=== PATIENT | female | born 1950 | race Caucasian/White ===

== ENCOUNTER 2018-07-17 08:25 | Inpatient (IN) ==
[2018-07-17] MEDS: HYDROmorphone 2 MG/ML VIAL IV PRN ×4 (08:35→10:14)
--- NOTE | 2018-07-17 09:06 | XRay Report ---
CLINICAL INFORMATION: Hip fracture TECHNIQUE: AP supine portable chest x-ray COMPARISON: None. FINDINGS: There is cardiomegaly. No pulmonary edema. Pulmonary parenchymal consolidation. No evidence for pneumonia. No acute abnormality. There is a round density projected behind the right hemidiaphragm. This is consistent with a granuloma. IMPRESSION: 1. Cardiomegaly. No pulmonary edema 2. No acute infiltrate Interpreted and Authenticated by: Ric Jarquin 07/17/18
--- NOTE | 2018-07-17 09:07 | XRay Report ---
CLINICAL INFORMATION: Fall. Hip pain. TECHNIQUE: AP pelvis. AP and lateral right hip COMPARISON: None. FINDINGS: Mildly comminuted right subtrochanteric hip fracture with varus angulation deformity. Right femoral head and neck are negative. Pelvis and left hip are negative. IMPRESSION: Subtrochanteric right hip fracture as above Interpreted and Authenticated by: Ric Jarquin 07/17/18
--- NOTE | 2018-07-17 09:18 | Emergency Department Note ---
Lower Extremity Injury HPI - General Chief Complaint: Extremity Injury, Lower Stated Complaint: R hip injury Time Seen by Provider: 07/17/18 09:14 Source: patient, EMS Mode of arrival: EMS - History of Present Illness HPI Narrative: This patient got tangled up with some dogs at home this morning that were fighting and she fell and broke her right hip. She has had a recent cold recently but no other symptoms. - Related Data Home Medications Medication Instructions Recorded Confirmed aspirin 325 mg tablet 325 mg PO QDAY 07/10/16 07/17/18 Previous Rx's Medication Instructions Recorded cholecalciferol (vitamin D3) 2,000 2,000 unit PO QDAY #90 cap 07/15/15 unit capsule pramipexole 0.125 mg tablet 0.125 mg PO QHS #60 tab 04/04/18 rosuvastatin 5 mg tablet 5 mg PO QDAY #90 tab 04/04/18 tramadol 50 mg tablet 50 mg PO Q6H PRN #30 tab 05/07/18 lisinopril 20 1 tab PO QDAY #90 tab 05/13/18 mg-hydrochlorothiazide 12.5 mg tablet bisoprolol fumarate 10 mg tablet 10 mg PO QDAY #90 tab 07/11/18 Allergies Allergy/AdvReac Type Severity Reaction Status Date / Time sertraline [From Zoloft] AdvReac Mild made her Verified 07/17/18 08:31 sick per patient Review of Systems All systems ED: reviewed and negative except as stated. Past Medical History - Past Medical History PMF Narrative: Medical History (Last Reviewed 05/07/18 @ 13:05 by Shonda Lei DO) RLS (restless legs syndrome) (Chronic) Elevated total protein (Chronic) Vitamin D deficiency (Chronic) Hyperlipidemia (Chronic) Hematuria (Chronic) Anxiety (Chronic) Osteopenia (Chronic) Breast nodule (Chronic) Physical exam (Chronic) Hypertension, essential (Chronic) Past Surgical History (Last Reviewed 05/07/18 @ 13:05 by Shonda Lei DO) H/O ovarian cystectomy (Inactive) History of tubal ligation (Inactive) Hx of appendectomy (Inactive) Family History (Last Reviewed 05/07/18 @ 13:05 by Shonda Lei DO) Mother Malignant neoplasm of brain Essential hypertension Cerebrovascular accident Grandmother-maternal Cerebrovascular accident - Social History smoking status: Former smoker Physical Exam She does have some swelling about the right hip. Limitations: no limitations General appearance: alert Head: atraumatic Eye: Present: normal appearance ENT: normal exam Neck: Present: normal inspection Chest: Present: normal inspection Respiratory: Present: normal lung sounds bilaterally Cardiovascular: Present: regular rate, normal rhythm, normal heart sounds Abdominal: Present: soft. Absent: distention, tenderness Neurological: Present: alert Psychiatric: Present: normal affect, normal mood Skin: Present: warm, dry, intact Course Vital Signs Temperature 97.4 F 07/17/18 08:26 Pulse Rate 70 07/17/18 08:26 Respiratory Rate 20 07/17/18 08:26 Blood Pressure 183/84 07/17/18 08:26 Pulse Oximetry (%) 98 07/17/18 08:26 Temperature 97.4 F 07/17/18 08:26 Pulse Rate 68 07/17/18 10:01 Respiratory Rate 20 07/17/18 08:30 Blood Pressure 170/94 07/17/18 10:01 Pulse Oximetry (%) 99 07/17/18 10:01 Extremity Injury, Lower - MDM Narrative Medical decision making narrative: This patient has a subtrochanteric hip fracture on the right. Chest x-ray was not remarkable. The surgeon Dr. Posadas is in surgery currently and gave us permission to have the hospitalist admit her to the hospital. Dr. Palma did accept the patient for admission - Lab Data Result diagrams: 07/17/18 09:11 07/17/18 09:11 Lab Results 07/17/18 Range/Units 09:11 WBC 6.8 (4.5-11.0) K/mcL RBC 3.30 L (4.00-5.20) M/mcL Hgb 9.5 L (12.0-15.0) g/dL Hct 28.8 L (36.0-48.0) % MCV 87.4 (80.0-100.0) fL MCH 28.7 (26.0-34.0) pg MCHC 32.9 (31.0-36.0) g/dL RDW 17.0 H (11.5-14.5) % Plt Count 346 (140-440) K/mcL MPV 7.2 L (7.4-10.4) fL Gran % 76.7 (38.0-78.0) % Lymph % (Auto) 11.4 L (15.5-49.0) % [place] % (Auto) 9.8 (1.0-12.0) % Eos % (Auto) 1.5 (0.0-7.0) % Baso % (Auto) 0.6 (0.0-2.0) % Gran # 5.2 (1.8-8.0) K/mcL Lymph # (Auto) 0.8 L (1.5-4.8) K/mcL [place] # (Auto) 0.7 (0.1-0.9) K/mcL Eos # (Auto) 0.1 (0.0-0.7) K/mcL Baso # (Auto) 0 (0.0-0.3) K/mcL - Radiology Data Radiology results reviewed: Yes I reviewed the patient's radiology results. Disposition Pt seen by [facility]/PA only: No Clinical Impression: Fracture of hip Disposition: Xfer As Inpt ([facility]) Condition: Good Referrals: Shonda Lei DO [Primary Care Provider] - Time of Disposition: 10:02
[2018-07-17 10:05] LABS: Basophils # (Auto) 0 K/mcL (0.0-0.3); Basophils % (Auto) 0.6 % (0.0-2.0); Eosinophils # (Auto) 0.1 K/mcL (0.0-0.7); Eosinophils % (Auto) 1.5 % (0.0-7.0); Granulocytes % (Auto) 76.7 % (38.0-78.0); Lymphocytes # (Auto) 0.8 K/mcL (1.5-4.8); Lymphocytes % (Auto) 11.4 % (15.5-49.0); Mean Cell Volume 87.4 fL (80.0-100.0); Mean Corpuscular HGB Conc 32.9 g/dL (31.0-36.0); Mean Corpuscular Hemoglobin 28.7 pg (26.0-34.0); Monocytes # (Auto) 0.7 K/mcL (0.1-0.9); Monocytes % (Auto) 9.8 % (1.0-12.0); Platelet Count 346 K/mcL (140-440)
[2018-07-17 10:33] LABS: ALT/SGPT 10 U/l (0-40); Albumin 3.4 gm/dL (3.2-5.2); Albumin/Globulin Ratio 0.5 (1.0-2.3); Alkaline Phosphatase 50 U/L (39-117); Blood Urea Nitrogen 14 mg/dl (8-23)
--- NOTE | 2018-07-17 10:44 | Internal Med History&Physical ---
Medical - H&P: HPI Patient information: Note initiated : 07/17/18 at 10:39 am Service Date, if different from initiated Date: [] Patient: Angelica Lockett a 68 y/o F admitted on for Rt Hip Injury. Chief Complaint: [] History of present illness: Ms. Lockett is a 68 year old F with a history of osteopenia who sitting on a couch with her when her dog started fighting. She stood up rapidly and the bent over rapidly to grab the dog and is when she felt immediate pain in her right hip. She sat down and then her helped her to stand up and that she heard a pop with more pain. She was immediately brought into the ER where she was found to have a right comminuted and angulated hip fracture on the right. Vital signs are stable other than being hypertensive at this time. Denies any chest pain shortness of breath lightheadedness abdominal pain, no numbness or tingling to extremity. Dr. Posadas contacted from the ED for orthopedic surgical intervention. Review of Systems: Right hip pain and swelling . denies headache/fever/chills/nausea/vomiting/ chest or abdominal pain/cough/dyspnea/diarrhea. Remaining 10 point review of systems reviewed and negative. Medical - H&P: PMH Medical history: Medical History (Last Reviewed 05/07/18 @ 13:05 by Shonda Lei DO) RLS (restless legs syndrome) (Chronic) Elevated total protein (Chronic) Vitamin D deficiency (Chronic) Hyperlipidemia (Chronic) Hematuria (Chronic) Anxiety (Chronic) Osteopenia (Chronic) Breast nodule (Chronic) Physical exam (Chronic) Hypertension, essential (Chronic) Past Surgical History (Last Reviewed 05/07/18 @ 13:05 by Shonda Lei DO) H/O ovarian cystectomy (Inactive) History of tubal ligation (Inactive) Hx of appendectomy (Inactive) Family History (Last Reviewed 05/07/18 @ 13:05 by Shonda Lei DO) Mother Malignant neoplasm of brain Essential hypertension Cerebrovascular accident Grandmother-maternal Cerebrovascular accident Social History (Last Updated 05/07/18 @ 13:29 by Shonda Lei DO) Quit smoking a year and half ago Drinks alcohol rarely In place with a cane Lives at home with Medical - H&P: Meds Home Medications Medication Instructions Recorded Confirmed Type cholecalciferol (vitamin D3) 2,000 2,000 unit PO QDAY #90 cap 07/15/15 07/17/18 Rx unit capsule aspirin 325 mg tablet 325 mg PO QDAY 07/10/16 07/17/18 History pramipexole 0.125 mg tablet 0.125 mg PO QHS #60 tab 04/04/18 07/17/18 Rx rosuvastatin 5 mg tablet 5 mg PO QDAY #90 tab 04/04/18 07/17/18 Rx tramadol 50 mg tablet 50 mg PO Q6H PRN #30 tab 05/07/18 07/17/18 Rx lisinopril 20 1 tab PO QDAY #90 tab 05/13/18 07/17/18 Rx mg-hydrochlorothiazide 12.5 mg tablet bisoprolol fumarate 10 mg tablet 10 mg PO QDAY #90 tab 07/11/18 07/17/18 Rx Allergies Allergy/AdvReac Type Severity Reaction Status Date / Time sertraline [From Zoloft] AdvReac Mild made her Verified 07/17/18 08:31 sick per patient Medical - H&P: Exam - Constitutional Vitals: Temp Pulse Resp BP Pulse Ox 97.4 F 68 20 170/94 99 07/17/18 08:26 07/17/18 10:01 07/17/18 08:30 07/17/18 10:01 07/17/18 10:01 Exam: General: Alert, Awake, No acute Distress HEENT: EOMI, neck supple CV: RRR, No murmurs, normal s1/s2 Pulm: Clear b/l, no wheezing/rhonchi/rales Abd: soft, nontender, +BS x4 Ext: no clubbing/cyanosis/edema. Right leg shortened and externally rotated Neuro: Alert, no focal deficits, moves all extremities Skin: warm/dry Medical - H&P: Reslt - Labs CBC & Chem 7: 07/17/18 09:11 07/17/18 09:11 Labs: Short CBC 07/17/18 Range/Units 09:11 WBC 6.8 (4.5-11.0) K/mcL Hgb 9.5 L (12.0-15.0) g/dL Hct 28.8 L (36.0-48.0) % Plt Count 346 (140-440) K/mcL BMP 07/17/18 09:11 Sodium 135 Potassium 3.7 Chloride 92 L Carbon Dioxide 22 BUN 14 Creatinine 0.9 Glucose 177 H Calcium 9.6 Liver Function 07/17/18 Range/Units 09:11 Total Bilirubin 0.5 (0.0-1.0) mg/dL AST 19 (0-37) U/l ALT 10 (0-40) U/l Alkaline Phosphatase 50 (39-117) U/L Albumin 3.4 (3.2-5.2) gm/dL - Impressions Chest x-ray unremarkable Right hip x-ray with comminuted and angulated fracture Medical - H&P: A/P - Narrative A/P Narrative: A: *Right hip fracture: *Osteopenia: *Hypertensive urgency: * P: -Dr. Posadas for orthopedic surgery -Pain control -Continue home BP medication medications postop and IV PRN prior while n.p.o. -PT/OT -This management for placement - - -ppx: SCDs, postop per Ortho
--- NOTE | 2018-07-17 10:58 | Cat Scan Report ---
CLINICAL INFORMATION: Right hip fracture. This may be a pathologic fracture TECHNIQUE: Axial noncontrast enhanced images through the chest, abdomen, pelvis. Sagittally and coronally reformatted images. Axial MIP reformatted images of the chest COMPARISON: Chest x-ray dated 07/17/2018. Right hip dated 07/17/2018 FINDINGS: CHEST: There is a noncalcified right lower lobe pulmonary parenchymal mass. This measures 21 x 13 x 13 mm. Findings are suspicious for neoplasm. There is a 6 mm noncalcified pulmonary parenchymal nodule in the left lower lobe, image 63. There is a 4 mm noncalcified left upper lobe nodule, image 33. There is a 3 mm right upper lobe nodule, image 54. There is a calcified right middle lobe granuloma. No pulmonary parenchymal consolidation. No evidence for pneumonia. There are small pretracheal mediastinal lymph nodes which are not enlarged and are probably physiologic. No detectable hilar adenopathy on this noncontrast enhanced examination. There may be a 14 mm left breast mass. Significance is not certain. Mammography is recommended. Patient's last mammogram was on 06/22/2017. No axillary or supraclavicular adenopathy. There is no pleural fluid. No pericardial fluid. There is a large hiatal hernia. ABDOMEN/PELVIS: Liver is negative to the limits of noncontrast enhanced examination. Gallbladder is present. No calcified gallstones. No gallbladder wall thickening. No pericholecystic fluid Spleen is not enlarged. Negative pancreas. No pancreatic mass. Negative adrenal glands. No adrenal mass. There is an 8 mm low-density abnormality in the posterior mid left kidney. This may be a cyst. Ultrasound is recommended to exclude a solid mass. Kidneys are otherwise negative. There is calcification of the abdominal aorta. No abdominal aortic aneurysm. There is mild sigmoid diverticulosis. Colon is otherwise negative. No detectable mass. No appendicitis. No mechanical small bowel obstruction. Uterus is somewhat atrophic. No adnexal mass. Incidental note is made of a right-sided spiculation hernia containing only fat. Hernia defect measures 2 cm. SKELETAL: There is a comminuted right subtrochanteric hip fracture. Subtrochanteric bone is abnormal consistent with pathologic fracture. No detectable periosseous mass. The right femur is not imaged in its entirety. The proximal right femoral diaphysis is abnormal consistent with malignancy. Further imaging of the entire right femur is recommended. CT scan or MRI scan would be helpful. There is abnormality of the right femoral neck and intertrochanteric region consistent with neoplasm. There are no lytic or sclerotic lesions with in the ribs. Sternum is negative. There is mild T6 superior endplate depression. There is a lucency within this vertebral body. This may be metastatic. This may be a mild pathologic superior endplate compression fracture. Thoracic vertebral bodies are otherwise negative. Lumbar spine is negative except for severe degenerative disc disease at L2-3 and L5-S1. No destructive lesions. Sacrum is negative. No pelvic lesions. Left femoral head and neck are negative IMPRESSION: 1. Comminuted right subtrochanteric hip fracture. Findings are consistent with pathologic fracture with evidence for marrow replacement extending into the right femoral neck and proximal right femoral diaphysis. Caudal extent of tumor is not imaged 2. Mild T6 superior endplate compression deformity. There is a lucency within this vertebral body and this may be pathologic. 3. No other detectable skeletal lesions. 4. 2.1 cm right lower lobe pulmonary parenchymal nodule. Findings are suspicious for malignancy. Small noncalcified nodules are nonspecific as above. Follow-up recommended 5. Possible left breast mass. Mammography recommended Interpreted and Authenticated by: Ric Jarquin 07/17/18
[2018-07-17] MEDS ORDERED: ONDANSETRON 4 MG/2 ML VIAL IV PRN ×3 (12:06→22:58)
[2018-07-17] MEDS ORDERED: traMADol 50 MG TABLET PO PRN ×2 (12:06→22:58)
[2018-07-17] MEDS ORDERED: PROCHLORPERAZINE 25 MG SUPP.RECT PR PRN ×2 (12:06→22:58)
[2018-07-17] MEDS ORDERED: IPRATROPIUM/ALBUTEROL 3 ML AMPUL.NEB NEB PRN ×3 (12:06→22:58)
[2018-07-17] MEDS ORDERED: ACETAMINOPHEN 325 MG TABLET PO PRN ×2 (12:06→22:58)
[2018-07-17] MEDS ORDERED: PROMETHAZINE 25 MG TABLET PO PRN ×2 (12:06→22:58)
[2018-07-17] MEDS ORDERED: 0.9 % SODIUM CHLORIDE 1,000 ML IV SCH (12:06)
[2018-07-17] MEDS ORDERED: HYDROcodone/APAP 5/325MG TABLET PO PRN (12:06)
[2018-07-17] MEDS: ENALAPRILAT 1.25 MG/ML VIAL IV PRN ×2 (12:47→17:31)
[2018-07-17] MEDS: 0.9 % SODIUM CHLORIDE 10 ML SYRINGE IV SCH ×2 (13:03→23:20)
[2018-07-17] MEDS ORDERED: METHOCARBAMOL 1,000 MG/10 ML VIAL IV PRN ×3 (14:24→22:58)
[2018-07-17] MEDS ORDERED: fentaNYL 250 MCG/5 ML VIAL IV ONE (19:55)
[2018-07-17] MEDS ORDERED: METOPROLOL TARTRATE 5 MG/5 ML VIAL IV ONE (19:55)
[2018-07-17] MEDS ORDERED: DEXAMETHASONE 10 MG/ML VIAL IV ONE (19:55)
[2018-07-17] MEDS ORDERED: MIDAZOLAM 5 MG/5 ML VIAL IV ONE (19:55)
[2018-07-17] MEDS ORDERED: PROPOFOL 200 MG/20 ML VIAL IV ONE (19:55)
[2018-07-17] MEDS ORDERED: KETAMINE 100 MG/ML ML IV ONE (19:55)
[2018-07-17] MEDS ORDERED: LIDOCAINE HCL/PF 100 MG/5 ML SYRINGE IV ONE (19:55)
[2018-07-17] MEDS ORDERED: GLYCOPYRROLATE 0.2 MG/ML VIAL IV ONE (19:55)
[2018-07-17] MEDS ORDERED: PHENYLEPHRINE 10 MG/ML VIAL IV ONE (19:55)
[2018-07-17] MEDS ORDERED: ONDANSETRON 4 MG/2 ML VIAL IV ONE (19:55)
[2018-07-17] MEDS ORDERED: ePHEDrine 50 MG/ML AMPUL IV ONE (19:55)
[2018-07-17] MEDS ORDERED: TRANEXAMIC ACID 1,000 MG/10 ML VIAL IV ONE (19:55)
[2018-07-17] MEDS ORDERED: ACETAMINOPHEN 1,000 MG/100 ML BOTTLE IV ONE ×2 (20:00→21:04)
[2018-07-17] MEDS ORDERED: hydrALAZINE 20 MG/ML VIAL IV PRN ×2 (20:36→22:58)
--- NOTE | 2018-07-17 20:45 | Consultation ---
DATE OF CONSULTATION: 07/17/2018 IDENTIFICATION: This is a 68-year-old female. CHIEF COMPLAINT: Right proximal femur fracture. HISTORY: This lady was sitting on her couch this morning. Apparently her dogs started fighting and that she jumped up quickly, had immediate pain, presented to the emergency room where a fracture of the proximal femur was noted. I was called for further evaluation. On evaluation of her radiographs it appears that this is a pathologic fracture. I have asked that a chest, abdomen, and pelvis CT be obtained, and the patient be admitted to medicine. PAST MEDICAL HISTORY: Significant for hypertension, history of anxiety, history of hematuria, hyperlipidemia. Generally, she is fairly healthy. PAST SURGICAL HISTORY: History of an ovarian cyst, history of tubal ligation, and appendectomy. FAMILY HISTORY: She does have a mother with a history of a brain tumor, otherwise noncontributory. SOCIAL HISTORY: She has been a long time smoker, but recently quit. She drinks only infrequently. She lives at home with her . REVIEW OF SYSTEMS: Her balance of 10-point review of systems is negative, although she does note an occasional cough. PHYSICAL EXAMINATION: GENERAL: She is awake and alert. She is resting comfortably. HEAD: Normocephalic, atraumatic. EYES: PERRLA. Conjunctivae clear. ENT: Within normal limits. NECK: Supple without pain on range of motion. HEART: Regular. LUNGS: Clear. ABDOMEN: Benign. LOWER EXTREMITIES: Her right lower extremity is carefully positioned. It seems to be without neurovascular deficit. There is no gross swelling. She does have some rotational deformity. IMAGING: Radiographs demonstrate a femur fracture which is subtrochanteric. There is a lytic lesion at the level of the fracture. IMPRESSION: Right femur fracture. Again, this appears to be a pathologic fracture. Results of her CT scan did suggest a lung nodule that is certainly concerning for a malignancy. 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 I have discussed this with an orthopedic oncologist, Dr. William Olsen. PLAN: We will plan to proceed with intramedullary rodding. The procedure has been discussed with family. I did discuss with him that there was a lesion proximally in the bone that I felt to be of concern. This will all require further evaluation and management. GDD:in Job ID: [id number] Doc ID: [id number] Adilson Posadas MD
[2018-07-17] MEDS ORDERED: PRAMIPEXOLE 0.25 MG TABLET PO SCH (21:00)
[2018-07-17] MEDS ORDERED: DOCUSATE SODIUM 100 MG CAPSULE PO SCH (21:00)
[2018-07-17] MEDS ORDERED: FAMOTIDINE 20 MG TABLET PO SCH (21:00)
[2018-07-17] MEDS ORDERED: BENZOCAINE/MENTHOL 1 LOZENGE PO PRN (21:04)
[2018-07-17] MEDS ORDERED: NALOXONE HCL 0.4 MG/ML VIAL IV PRN (21:04)
[2018-07-17] MEDS ORDERED: fentaNYL 100 MCG/2 ML VIAL IV PRN (21:04)
[2018-07-17] MEDS ORDERED: LACTATED RINGERS 250 ML IV PRN (21:04)
[2018-07-17] MEDS ORDERED: FLUMAZENIL 0.1 MG/ML ML IV PRN (21:04)
[2018-07-17] MEDS ORDERED: MEPERIDINE 25 MG/ML SYRINGE IV PRN (21:04)
[2018-07-17] MEDS ORDERED: LACTATED RINGERS 1,000 ML IV SCH (21:15)
[2018-07-17] MEDS ORDERED: HYDROCODONE/APAP 7.5/325MG TABLET PO PRN (21:18)
--- NOTE | 2018-07-17 21:33 | XRay Report ---
CLINICAL INFORMATION: Open reduction and internal fixation of pathologic right subtrochanteric hip fracture TECHNIQUE: 1.3 minutes fluoroscopy utilized. Intraoperative spot films obtained. IMPRESSION: Fluoroscopic guidance guided open reduction internal fixation of right subtrochanteric hip fracture Interpreted and Authenticated by: Ric Jarquin 07/17/18
[2018-07-17] MEDS ORDERED: ENALAPRILAT 1.25 MG/ML VIAL IV PRN (22:58)
[2018-07-17] MEDS: 0.9 % SODIUM CHLORIDE 1,000 ML IV SCH (23:00)
[2018-07-18] MEDS ORDERED: METHOCARBAMOL 1,000 MG/10 ML VIAL ONE (01:13)
[2018-07-18] MEDS: ceFAZolin 1 GM VIAL IV SCH ×3 (04:13→20:27)
[2018-07-18] MEDS ORDERED: ceFAZolin 1 GM VIAL ONE (04:17)
[2018-07-18] MEDS ORDERED: traMADol 50 MG TABLET PO ONE (04:23)
[2018-07-18] MEDS: 0.9 % SODIUM CHLORIDE 10 ML SYRINGE IV SCH ×3 (04:30→20:28)
[2018-07-18 07:11] LABS: Basophils # (Auto) 0 K/mcL (0.0-0.3); Basophils % (Auto) 0 % (0.0-2.0); Eosinophils # (Auto) 0 K/mcL (0.0-0.7); Eosinophils % (Auto) 0 % (0.0-7.0); Granulocytes % (Auto) 95.8 % (38.0-78.0); Lymphocytes # (Auto) 0.4 K/mcL (1.5-4.8); Lymphocytes % (Auto) 2.7 % (15.5-49.0); Mean Cell Volume 88.1 fL (80.0-100.0); Mean Corpuscular HGB Conc 33.1 g/dL (31.0-36.0); Mean Corpuscular Hemoglobin 29.2 pg (26.0-34.0); Monocytes # (Auto) 0.2 K/mcL (0.1-0.9); Monocytes % (Auto) 1.5 % (1.0-12.0); Platelet Count 276 K/mcL (140-440); Red Cell Distribution Width 17.2 % (11.5-14.5)
[2018-07-18 07:32] LABS: ALT/SGPT 10 U/l (0-40); Albumin 2.9 gm/dL (3.2-5.2); Albumin/Globulin Ratio 0.5 (1.0-2.3); Alkaline Phosphatase 43 U/L (39-117); Bilirubin,Direct < 0.2 mg/dL (0.0-0.3); Blood Urea Nitrogen 15 mg/dl (8-23); Gamma Glutamyl Transpeptidase 12 U/L (5-36); Uric Acid 7.2 mg/dL (2.5-8.0)
--- NOTE | 2018-07-18 08:34 | Brief Operative Note ---
Date of procedure: 07/18/18 Pre-op diagnosis: R Femur fracture Post-op diagnosis: same Procedure: IMR Grafts/Implants: Yes (mike) Anesthesia: GETA, spinal Complications: none Surgeon: Adilson Posadas Estimated blood loss (cc): 300 Specimens Removed/Pathology: other (biopsy of femoral lesion) Condition: stable
--- NOTE | 2018-07-18 08:34 | Orthopedic Progress Note ---
Subjective Patient information: Note initiated : 07/18/18 at 7:08 am Service Date, if different from initiated Date: [] Patient: Angelica Lockett 68 y/o F admitted on 07/17/18 for Rt Hip Injury. Chief Complaint: [] No new issues. No complaints Objective Vital signs: Vital Signs Temp Pulse Pulse Resp BP BP Pulse Ox 07/18/18 02:11 72 107/64 96 07/18/18 01:41 86 118/65 97 07/18/18 01:36 98.0 F 90 16 129/71 97 07/18/18 00:35 78 97/57 98 07/18/18 00:05 78 102/59 97 07/17/18 23:35 79 101/58 96 07/17/18 23:20 83 95/56 98 07/17/18 23:05 88 108/62 91 07/17/18 23:03 97 07/17/18 22:51 90 104/59 93 07/17/18 22:35 97.2 F 111 H 14 99/54 89 L 07/17/18 22:25 97.6 F 108 H 18 110/61 94 07/17/18 22:20 101 H 19 105/56 100 07/17/18 22:10 79 22 123/59 100 07/17/18 22:05 93 H 14 86/44 100 07/17/18 21:55 94 H 12 104/60 100 07/17/18 21:45 91 H 12 138/66 100 07/17/18 21:40 85 13 162/69 100 07/17/18 21:35 89 11 L 143/69 100 07/17/18 21:30 93 H 10 L 101/65 100 07/17/18 21:25 97.6 F 99 H 13 102/62 99 07/17/18 19:25 97 07/17/18 19:19 100.0 F H 82 20 174/81 97 07/17/18 17:00 98.1 F 77 18 177/78 100 07/17/18 13:28 96.5 F L 64 18 197/77 99 07/17/18 12:29 72 169/78 99 07/17/18 11:51 73 16 150/76 99 07/17/18 11:46 66 150/86 99 07/17/18 11:31 64 155/78 99 07/17/18 11:16 74 141/78 98 07/17/18 11:01 79 147/81 98 07/17/18 10:50 66 149/79 99 07/17/18 10:13 74 100 07/17/18 10:01 68 170/94 99 07/17/18 09:46 69 205/103 99 07/17/18 09:31 62 179/97 98 07/17/18 09:16 64 195/92 90 07/17/18 09:02 62 192/104 95 07/17/18 08:30 20 07/17/18 08:26 97.4 F 70 20 183/84 98 Intake and Output 07/17/18 07/18/18 07/18/18 21:59 05:59 13:59 Intake Total 1800 / 1800 300 / 300 Output Total 1050 / 1050 550 / 550 Balance 750 / 750 -250 / -250 Intake: Oral 300 / 300 IV - Manual Only 1800 / 1800 Output: Urine Catheter Amount 850 / 850 550 / 550 Estimated Blood Loss 200 / 200 Other: Meal Nourishment/Supplement Percent of Meal Consumed 100% Feeding Ability Independent Urine Appearance Cloudy Clear Uretheral (Willams) Clear Clear Urine Color Dark Yellow Bright Yellow Uretheral (Willams) Bright Yellow Bright Yellow Urine Odor Normal Intake & Output: Intake & Output 07/17/18 07/18/18 07/18/18 21:59 05:59 13:59 Intake Total 1800 / 1800 300 / 300 Output Total 1050 / 1050 550 / 550 Balance 750 / 750 -250 / -250 Intake: Oral 300 / 300 IV - Manual Only 1800 / 1800 Output: Urine Catheter Amount 850 / 850 550 / 550 Estimated Blood Loss 200 / 200 Other: Meal Nourishment/Supplement Percent of Meal Consumed 100% Feeding Ability Independent Urine Appearance Cloudy Clear Uretheral (Willams) Clear Clear Urine Color Dark Yellow Bright Yellow Uretheral (Willams) Bright Yellow Bright Yellow Urine Odor Normal Dressing: Yes clean, Yes dry, Yes intact Weight bearing status: partial Neurological exam IM: Yes neurovascular intact - Labs CBC & BMP: 07/17/18 09:11 07/17/18 09:11 Labs: Orthopedic Labs 07/17/18 09:11 PT 15.2 H INR 1.2 H 07/18/18 07/17/18 04:05 09:11 Hgb Pending 9.5 L Hct Pending 28.8 L Assessment and Plan (1) Fracture of hip R femur fracture pathologic, s/p IMR. Will arrange W/U for lung nodule Status: Acute
--- NOTE | 2018-07-18 08:34 | Internal Med Progress Note ---
Medical - PN: Subj Patient information: Note initiated : 07/18/18 at 6:50 am Service Date, if different from initiated Date: [] Patient: Angelica Lockett a 68 y/o F admitted on 07/17/18 for Rt Hip Injury. Chief Complaint: [] Interval history: Ms. Lockett is a 68 year old F with a history of osteopenia who sitting on a couch with her when her dog started fighting. She stood up rapidly and the bent over rapidly to grab the dog and is when she felt immediate pain in her right hip. She sat down and then her helped her to stand up and that she heard a pop with more pain. She was immediately brought into the ER where she was found to have a right comminuted and angulated hip fracture on the right. Vital signs are stable other than being hypertensive at this time. Denies any chest pain shortness of breath lightheadedness abdominal pain, no numbness or tingling to extremity. Dr. Posadas contacted from the ED for orthopedic surgical intervention. Review of Systems: Right hip pain and swelling . denies headache/fever/chills/nausea/vomiting/ chest or abdominal pain/cough/dyspnea/diarrhea. Remaining 10 point review of systems reviewed and negative. 07/18 had ORIF last night. Slept well feeling much better today. Does have a residual cough from recent cold. Pain much improved after procedure. Review of Systems: denies headache/fever/chills/nausea/vomiting/chest or abdominal pain/cough/ dyspnea/diarrhea. Otherwise see above. - Constitutional Vitals: Vital Signs Temp Pulse Resp BP Pulse Ox 98.0 F 72 16 107/64 96 07/18/18 01:36 07/18/18 02:11 07/18/18 01:36 07/18/18 02:11 07/18/18 02:11 Period Temp Pulse Resp BP Sys/Sue Pulse Ox Last 24 Hr 96.5 F-100.0 F 62-111 10-22 86-205/44-104 89-100 Intake and Output 07/17/18 07/18/18 07/18/18 21:59 05:59 13:59 Intake Total 1800 / 1800 300 / 300 Output Total 1050 / 1050 550 / 550 Balance 750 / 750 -250 / -250 Intake & Output: Intake & Output 07/17/18 07/18/18 07/18/18 21:59 05:59 13:59 Intake Total 1800 / 1800 300 / 300 Output Total 1050 / 1050 550 / 550 Balance 750 / 750 -250 / -250 Intake: Oral 300 / 300 IV - Manual Only 1800 / 1800 Output: Urine Catheter Amount 850 / 850 550 / 550 Estimated Blood Loss 200 / 200 Other: Meal Nourishment/Supplement Percent of Meal Consumed 100% Feeding Ability Independent Urine Appearance Cloudy Clear Uretheral (Willams) Clear Clear Urine Color Dark Yellow Bright Yellow Uretheral (Willams) Bright Yellow Bright Yellow Urine Odor Normal Exam: General: Alert, Awake, No acute Distress HEENT: EOMI, neck supple CV: RRR, No murmurs, normal s1/s2 Pulm: Clear b/l, no wheezing/rhonchi/rales Abd: soft, nontender, +BS x4 Ext: no clubbing/cyanosis/edema. Neuro: Alert, no focal deficits, moves all extremities, sensations intact Skin: warm/dry Medical - PN: Obj Da - Labs CBC & Chem 7: 07/18/18 04:05 07/18/18 04:05 Labs: Abnormal Lab Results 07/17/18 07/17/18 07/17/18 09:11 09:11 09:11 RBC 3.30 L Hgb 9.5 L Hct 28.8 L RDW 17.0 H MPV 7.2 L Lymph % (Auto) 11.4 L Lymph # (Auto) 0.8 L PT 15.2 H INR 1.2 H Chloride 92 L Anion Gap 21.0 H Glucose 177 H Total Protein 10.1 H Globulin 6.7 H Albumin/Globulin Ratio 0.5 L Meds: Medications Acetaminophen (Tylenol) 650 mg PO Q6HP PRN PRN Reason: PAIN/FEVER > 101 Hydrocodone Bitart/Acetaminophen ([place] 7.5/325mg) 1 - 2 tab PO Q4-6HP PRN PRN Reason: PAIN LEVEL 3-6 Albuterol/Ipratropium (Duoneb) 3 ml NEB Q4HRT PRN PRN Reason: BREATH Bisoprolol Fumarate (Zebeta) 10 mg PO DAILY [facility] Cefazolin Sodium (Ancef) 1 gm IV Q8H [facility] Last Admin: 07/18/18 04:13 Dose: Not Given Docusate Sodium (Colace) 100 mg PO BID [facility] Enalaprilat (Vasotec) 0 mg IV Q2HP PRN PRN Reason: Hypertension Famotidine (Pepcid) 20 mg PO BID [facility] Hydralazine HCl (Apresoline) 0 mg IV Q2HP PRN PRN Reason: Hypertension Sodium Chloride (Sodium Chloride 0.9%) 1,000 mls @ 75 mls/hr IV .[id number] [facility] Last Admin: 07/17/18 23:00 Dose: 75 mls/hr Methocarbamol (Robaxin) 0 mg IV Q6HP PRN PRN Reason: Muscle Spasm Morphine Sulfate (Morphine) 1 - 3 mg IV Q4HP PRN PRN Reason: Pain Ondansetron HCl (Zofran) 4 mg IV Q4HP PRN PRN Reason: Nausea And Vomiting Pramipexole Dihydrochloride (Mirapex) 0.125 mg PO HS [facility] Prochlorperazine Maleate (Compazine) 12.5 mg MS Q12HP PRN PRN Reason: Nausea And Vomiting Promethazine HCl (Phenergan) 12.5 mg PO Q6HP PRN PRN Reason: Nausea And Vomiting Simvastatin (Zocor) 20 mg PO DAILY [facility] Sodium Chloride (Saline Flush) 10 ml IV Q8 [facility] Last Admin: 07/18/18 04:30 Dose: Not Given Tramadol HCl (Ultram) 50 mg PO Q6HP PRN PRN Reason: Pain Medical - PN: A/P - Time Spent With Patient Total time spent is greater than 50% in coordination of care (as documented) at patient's floor/unit and/or counseling patient: - Narrative A/P Narrative: A: *Right hip fracture: s/p ORIF (07/17) -pathologic Fx *Post-op Anemia: *Osteopenia: *Hypertensive urgency: improved, low post-op *Incidental 2cm RLL pulm nodule: suspect for malignancy, likely primary given smoking history -and lesion at Fx site P: -Dr. Posadas for orthopedic surgery -Pain control -restart Bisoprolol, restart lisinopril as BP allows -f/u H&H later today -PT/OT -CM for placement -f/u with PCP/Oncology outpt for further w/u and biopsy of lung nodule: Dr. Posadas has talked to Orthopedic Oncologist Dr. Olsen and Dr. Bean who will review imaging and determine best route of biopsy - -ppx: SCDs, postop per Ortho Medical - PN: Qual - Stroke Symptom Onset Unknown: No
[2018-07-18] MEDS: BISOPROLOL 5 MG TABLET PO SCH (08:38)
[2018-07-18] MEDS: DOCUSATE SODIUM 100 MG CAPSULE PO SCH ×2 (08:38→20:28)
[2018-07-18] MEDS: FAMOTIDINE 20 MG TABLET PO SCH ×2 (08:38→20:27)
[2018-07-18] MEDS: SIMVASTATIN 20 MG TABLET PO SCH (08:38)
--- NOTE | 2018-07-18 08:52 | Operative Note ---
DATE OF OPERATION: 07/18/2018 PREOPERATIVE DIAGNOSIS: Pathologic right femur fracture. POSTOPERATIVE DIAGNOSIS: Pathologic right femur fracture. OPERATION PROPOSED: 1. Reduction and intramedullary rodding right femur fracture. 2. Biopsy femoral shaft lesion. OPERATION PERFORMED: 1. Reduction and intramedullary rodding right femur fracture. 2. Biopsy femoral shaft lesion. OPERATING SURGEON: Christiano Posadas MD TILE CONDUIT LAYER: Manpreet Bright PA-C INDICATIONS: This is a lady who has developed a fracture, right femur. This appears to be a pathologic fracture secondary to a lesion proximal femur. I have discussed this with Orthopedic Oncology. We have elected to proceed with an intramedullary rodding. OPERATION IN DETAIL: Informed consent was obtained. The patient was taken to the operating room where she was provided with appropriate anesthetic and prophylactic antibiotics. She was carefully positioned on the fracture table. The best possible reduction was obtained. I made a 3 cm incision proximal to the tip of the greater trochanter. I advanced through the gluteal muscles arriving on the tip of the trochanter. I entered the tip the greater trochanter medial face and advanced an intramedullary guidewire. I used an opening reamer to enter the canal. I then used an extended pituitary type forceps to grasp material that appeared to be within the region of this lytic lesion. These grafts of material were made under fluoroscopy. This material was sent to pathology. I then reamed the canal. I impacted a 13 x 40 cm intramedullary silvano. A gamma hip screw was applied proximally. Distal interlocking screws x2 were applied distally. The wounds were irrigated extensively. I closed with a 0 Vicryl in interrupted fashion, 2-0 Vicryl inverted deep dermal, and parrish. The procedure was tolerated well. No complications. Estimated blood loss is 300 mL. GDD:shea Job ID: [id number] Doc ID: [id number] Adilson Posadas MD
[2018-07-18] MEDS ORDERED: SIMVASTATIN 20 MG TABLET PO SCH (09:00)
[2018-07-18] MEDS ORDERED: BISOPROLOL 5 MG TABLET PO SCH (09:00)
[2018-07-18] MEDS ORDERED: PNEUMOCOCCAL 23-VAL P-SAC VAC 0.5 ML VIAL IM ONE (10:00)
[2018-07-18] MEDS: 0.9 % SODIUM CHLORIDE 1,000 ML IV SCH (12:37)
[2018-07-18] MEDS: HYDROCODONE/APAP 7.5/325MG TABLET PO PRN (18:00)
[2018-07-18] MEDS: PRAMIPEXOLE 0.25 MG TABLET PO SCH (20:28)
[2018-07-19] MEDS: HYDROCODONE/APAP 7.5/325MG TABLET PO PRN ×5 (01:45→21:54)
[2018-07-19] MEDS: 0.9 % SODIUM CHLORIDE 1,000 ML IV SCH ×3 (03:36→23:23)
[2018-07-19] MEDS: 0.9 % SODIUM CHLORIDE 10 ML SYRINGE IV SCH ×3 (06:28→22:13)
[2018-07-19 07:05] LABS: ALT/SGPT 11 U/l (0-40); Albumin 2.8 gm/dL (3.2-5.2); Albumin/Globulin Ratio 0.6 (1.0-2.3); Alkaline Phosphatase 39 U/L (39-117); Bilirubin,Direct < 0.2 mg/dL (0.0-0.3); Blood Urea Nitrogen 15 mg/dl (8-23); Gamma Glutamyl Transpeptidase 10 U/L (5-36); Uric Acid 7.8 mg/dL (2.5-8.0)
[2018-07-19 07:10] LABS: Basophils # (Auto) 0 K/mcL (0.0-0.3); Basophils % (Auto) 0.3 % (0.0-2.0); Eosinophils # (Auto) 0 K/mcL (0.0-0.7); Eosinophils % (Auto) 0.1 % (0.0-7.0); Granulocytes % (Auto) 77.6 % (38.0-78.0); Lymphocytes # (Auto) 0.8 K/mcL (1.5-4.8); Lymphocytes % (Auto) 11.3 % (15.5-49.0); Mean Cell Volume 87.3 fL (80.0-100.0); Mean Corpuscular HGB Conc 32.6 g/dL (31.0-36.0); Mean Corpuscular Hemoglobin 28.5 pg (26.0-34.0); Monocytes # (Auto) 0.8 K/mcL (0.1-0.9); Monocytes % (Auto) 10.7 % (1.0-12.0); Platelet Count 226 K/mcL (140-440); RBC 2.05 M/mcL (4.00-5.20); Red Cell Distribution Width 17.3 % (11.5-14.5)
[2018-07-19] MEDS ORDERED: 0.9 % SODIUM CHLORIDE 250 ML IV SCH (07:15)
--- NOTE | 2018-07-19 08:02 | Consultation ---
DATE OF CONSULTATION: 07/18/2018 REQUESTING: Christiano Posadas MD, Orthopedic CONSULTING: Randell Bean MD, Pulmonary Disease HISTORY OF PRESENT ILLNESS: The patient is a 68-year-old female. Yesterday afternoon/evening she got up from a bench to deal with some pets that were fighting and felt discomfort in her right hip. She sat back down on the bench and then tried to see what was going on and felt a pop and significant pain in her right hip. She called 911 and was transported to the hospital where evaluation demonstrated the presence of a probable pathologic fracture in the proximal right femur. Dr. Posadas from Orthopedics reviewed the case and did an open fixation procedure. Pathology tissue was apparently submitted for histopathologic diagnosis of a possible metastatic lesion causing weakness of the bone and fracture. Pathology is pending at this time. PAST MEDICAL/SOCIAL HISTORY: The patient reports a 16-okoz-nhhl tobacco use history. She quit just 2 or 3 years ago. She indicates that she has had a current cold that has been going through the house and has chest congestion in that regard. She indicates that she does not routinely have chest congestion or cough. She denies fevers, sweats or chills at this time. She reports that she worked as a PHARMACY LABORATORY TECHNICIAN until about 2004 and she had negative PPD skin test in that regard to that time. She traveled with her around the [facility]. He was in large scale construction and poured concrete. She denies other aixa or industrial occupations or exposures herself. Medical issues include hypertensive cardiovascular disease. She denies other known atherosclerotic coronary artery disease or medical issues in that regard. She indicates that she does have a known breast nodule which has been being followed. RADIOLOGIC STUDIES: CT scan of the chest demonstrated the presence of a right breast nodule as well as a 2 to 3 cm lung nodule. Consultation was placed to Pulmonary for possible need to intervene regarding the lung nodule. REVIEW OF SYSTEMS: Negative for dependent edema, chest pain, purulent sputum or other at this point in time. PHYSICAL EXAMINATION: GENERAL: The patient is a pleasant female, pleased to be out of leg pain and in no acute distress at rest in the bed. HEAD: Atraumatic and normocephalic. NECK: Supple and the carotids are equal without bruits. LUNGS: Decreased breath sounds throughout, moderately to markedly so with scattered wheeze and rare rhonchus at this time. HEART: Regular S1, S2. There is no apparent gallop, rub, jugular venous distention, or edema. BONES, JOINTS AND EXTREMITIES: Recent right femur surgery otherwise without acute changes. NEUROLOGIC: Nonfocal. LABORATORY STUDIES: Results available in the chart thus far include serial CBCs with hemoglobin initially at 9.5, now 7.7; platelet count in the normal range on two determinations; white count 6.8 at presentation and 13.1 this morning at 4:00 a.m. INR was 1.2 prior to surgery. Electrolytes had chloride at 92; returned to the normal range today. Comprehensive metabolic survey was otherwise within normal limits with the exception of total protein. Total protein was elevated at 10.1 at the time of presentation, improved to 8.5 this morning. Globulin fraction elevated. This might suggest an issue related to a myeloma deposit in the femur. IMPRESSION: A 68-year-old female with what is deemed to be a pathologic fracture of the proximal right femur. It has undergone orthopedic repair. Pathology on tissue in that regard is pending. Identified issues of concern is a lung nodule. On review of those films the nodule appears to be too distal to reach with bronchoscopy. I did discuss the case briefly with Dr. Jarquin who examined the films and thought biopsy of the lung nodule would be necessary and he would probably be able to get that with a transthoracic needle biopsy. I would recommend await pathology and see what Oncology might need to know to a greater degree as to whether or not a lung biopsy would be a consideration. At this time, the patient has a significant exacerbation of COPD going on and a needle biopsy of that lesion might be problematic until more clinically well. The patient is on DuoNeb by nebulizer q.4h. by RT, which seems appropriate for her current level of chest congestion and bronchospasm. I will discuss the case with Dr. Sun and assist in medical management as needed. Thank you for the opportunity to participate in the care of this very pleasant lady. 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 Should the lung lesion need further elucidation for oncology, Then allowing some time for current chest congestion to improve and transthoracic needle biopsy would probably be the best approach. KJP:shea Job ID: [id number] Doc ID: [id number] Randell Bean MD [facility]
[2018-07-19] MEDS: DOCUSATE SODIUM 100 MG CAPSULE PO SCH ×2 (08:13→21:54)
[2018-07-19] MEDS: NEUTRA PHOS 1 PACKET PO SCH ×2 (08:14→21:54)
[2018-07-19] MEDS: BISOPROLOL 5 MG TABLET PO SCH (08:14)
[2018-07-19] MEDS: SIMVASTATIN 20 MG TABLET PO SCH (08:14)
[2018-07-19] MEDS: FAMOTIDINE 20 MG TABLET PO SCH ×2 (08:14→21:54)
--- NOTE | 2018-07-19 11:09 | Internal Med Progress Note ---
Medical - PN: Subj Patient information: Note initiated : 07/19/18 at 11:06 am Service Date, if different from initiated Date: [] Patient: Angelica Lockett a 68 y/o F admitted on 07/17/18 for Rt Hip Injury. Chief Complaint: [] Interval history: Ms. Lockett is a 68 year old F with a history of osteopenia who sitting on a couch with her when her dog started fighting. She stood up rapidly and the bent over rapidly to grab the dog and is when she felt immediate pain in her right hip. She sat down and then her helped her to stand up and that she heard a pop with more pain. She was immediately brought into the ER where she was found to have a right comminuted and angulated hip fracture on the right. Vital signs are stable other than being hypertensive at this time. Denies any chest pain shortness of breath lightheadedness abdominal pain, no numbness or tingling to extremity. Dr. Posadas contacted from the ED for orthopedic surgical intervention. Review of Systems: Right hip pain and swelling . denies headache/fever/chills/nausea/vomiting/ chest or abdominal pain/cough/dyspnea/diarrhea. Remaining 10 point review of systems reviewed and negative. 07/18 had ORIF last night. Slept well feeling much better today. Does have a residual cough from recent cold. Pain much improved after procedure. 07/19 Patient seen and examined, no acute overnight events. Hemoglobin this morning was low. 5.5 and then repeat was 6.5. Likely postop blood loss patient denies any black stools blood in the stools or urine. The thigh does not look to tense. Patient denies any thigh pain. I reviewed her CT chest report with her, it seems that there is a left breast mass reported on the CT chest she has had a nodule on the left side of the breast in the past which has been evaluated however the size of the nodule is bigger compared to the previous documentation as per radiology. The patient would benefit from outpatient mammogram. Lung nodule-appreciate pulmonary input will try to schedule lung biopsy , pulmonary wants us to wait for her copd to improve. will vale procedure as outpatient. I also reviewed the pulmonary note addendum from today, noted myeloma found on the femoral pathology specimen. Oncology follow-up as outpatient. Pertinent ROS: Denies headache, dizziness Denies chest pain, palpitations Denies cough or shortness of breath Denies abdominal pain, nausea or vomiting. - Constitutional Vitals: Vital Signs Temp Pulse Resp BP Pulse Ox 98.9 F 93 H 20 160/85 97 07/19/18 07:40 07/19/18 03:35 07/19/18 07:40 07/19/18 07:40 07/19/18 07:40 Period Temp Pulse Resp BP Sys/Sue Pulse Ox Last 24 Hr 97.6 F-99.6 F 90-98 16-20 118-160/61-85 92-97 Intake and Output 07/18/18 07/19/18 07/19/18 21:59 05:59 13:59 Intake Total 800 / 800 1675 / 1675 Output Total 1150 / 1150 600 / 600 Balance -350 / -350 1075 / 1075 Weight 150 lb Intake & Output: Intake & Output 07/18/18 07/19/18 07/19/18 21:59 05:59 13:59 Intake Total 800 / 800 1675 / 1675 Output Total 1150 / 1150 600 / 600 Balance -350 / -350 1075 / 1075 Weight 150 lb Intake: IV 1000 / 1000 Sodium Chloride 0.9% 1,000 ml @ 1000 / 1000 75 mls/hr IV .[id number] [facility] Rx#: [id number] Oral 800 / 800 675 / 675 Output: Void Amount 1150 / 1150 600 / 600 Other: Urine Appearance Clear Clear Urine Color Pale Pale Urine Odor Normal Exam: Constitutional; Afebrile, cooperative, alert, not in distress. Eyes- No icterus, , No periorbital swelling Ears- Ext ear normal, hearing normal to conversation. Neck- Midline trachea, supple Respiratory system: Air Entry equal on both sides, prolonged exp phase. No crackles or wheezing, no rhonchi. CVS- Rate rhythm regular, S1,S2 heard, no gallop, no rub. Abdomen- Soft nontender abdomen, no organomegaly, no tenderness, no guarding or rigidity, VP RESPIRATORY- AOOx3, moving all extremities, no gross focal deficit noted. Medical - PN: Obj Da - Labs CBC & Chem 7: 07/19/18 07:37 07/19/18 04:20 Labs: Abnormal Lab Results 07/19/18 07/19/18 07/19/18 07:37 04:20 04:20 WBC RBC 2.05 L Hgb 6.5 L* 5.8 L* Hct 19.4 L* 17.9 L* RDW 17.3 H MPV 7.3 L Gran % Lymph % (Auto) 11.3 L Gran # Lymph # (Auto) 0.8 L PT INR Chloride Anion Gap Glucose Calcium 8.4 L Phosphorus 1.6 L Total Protein Albumin 2.8 L Globulin 4.9 H Albumin/Globulin Ratio 0.6 L 07/18/18 07/18/18 07/18/18 15:28 04:05 04:05 WBC 13.1 H RBC 2.60 L Hgb 7.7 L 7.6 L Hct 22.5 L 22.9 L RDW 17.2 H MPV Gran % 95.8 H Lymph % (Auto) 2.7 L Gran # 12.6 H Lymph # (Auto) 0.4 L PT INR Chloride Anion Gap Glucose 184 H Calcium Phosphorus Total Protein 8.5 H Albumin 2.9 L Globulin 5.6 H Albumin/Globulin Ratio 0.5 L 07/17/18 07/17/18 07/17/18 09:11 09:11 09:11 WBC RBC 3.30 L Hgb 9.5 L Hct 28.8 L RDW 17.0 H MPV 7.2 L Gran % Lymph % (Auto) 11.4 L Gran # Lymph # (Auto) 0.8 L PT 15.2 H INR 1.2 H Chloride 92 L Anion Gap 21.0 H Glucose 177 H Calcium Phosphorus Total Protein 10.1 H Albumin Globulin 6.7 H Albumin/Globulin Ratio 0.5 L Meds: Medications Acetaminophen (Tylenol) 650 mg PO Q6HP PRN PRN Reason: PAIN/FEVER > 101 Hydrocodone Bitart/Acetaminophen ([place] 7.5/325mg) 1 - 2 tab PO Q4-6HP PRN PRN Reason: PAIN LEVEL 3-6 Last Admin: 07/19/18 10:04 Dose: 1 tab Albuterol/Ipratropium (Duoneb) 3 ml NEB Q4HRT PRN PRN Reason: BREATH Bisoprolol Fumarate (Zebeta) 10 mg PO DAILY [facility] Last Admin: 07/19/18 08:14 Dose: 10 mg Docusate Sodium (Colace) 100 mg PO BID [facility] Last Admin: 07/19/18 08:13 Dose: 100 mg Enalaprilat (Vasotec) 0 mg IV Q2HP PRN PRN Reason: Hypertension Famotidine (Pepcid) 20 mg PO BID [facility] Last Admin: 07/19/18 08:14 Dose: 20 mg Hydralazine HCl (Apresoline) 0 mg IV Q2HP PRN PRN Reason: Hypertension Sodium Chloride (Sodium Chloride 0.9%) 1,000 mls @ 75 mls/hr IV .[id number] [facility] Last Admin: 07/19/18 03:36 Dose: 75 mls/hr Sodium Chloride (Sodium Chloride 0.9%) 250 mls @ 20 mls/hr IV .[id number] [facility] Stop: 07/19/18 19:44 Methocarbamol (Robaxin) 0 mg IV Q6HP PRN PRN Reason: Muscle Spasm Last Admin: 07/18/18 08:38 Dose: 1,000 mg Morphine Sulfate (Morphine) 1 - 3 mg IV Q4HP PRN PRN Reason: Pain Ondansetron HCl (Zofran) 4 mg IV Q4HP PRN PRN Reason: Nausea And Vomiting Potassium/Phosphorus/Sodium (Neutra Phos) 1 packet PO BID [facility] Last Admin: 07/19/18 08:14 Dose: 1 packet Pramipexole Dihydrochloride (Mirapex) 0.125 mg PO HS [facility] Last Admin: 07/18/18 20:28 Dose: 0.125 mg Prochlorperazine Maleate (Compazine) 12.5 mg ID Q12HP PRN PRN Reason: Nausea And Vomiting Promethazine HCl (Phenergan) 12.5 mg PO Q6HP PRN PRN Reason: Nausea And Vomiting Simvastatin (Zocor) 20 mg PO DAILY [facility] Last Admin: 07/19/18 08:14 Dose: 20 mg Sodium Chloride (Saline Flush) 10 ml IV Q8 [facility] Last Admin: 07/19/18 06:28 Dose: Not Given Tramadol HCl (Ultram) 50 mg PO Q6HP PRN PRN Reason: Pain Medical - PN: A/P - Time Spent With Patient Total time spent is greater than 50% in coordination of care (as documented) at patient's floor/unit and/or counseling patient: - Narrative A/P Narrative: A: *Right hip fracture: s/p ORIF (07/17) -pathologic Fx *Post-op Anemia: *Osteopenia: *Hypertensive urgency: improved, low post-op *Incidental 2cm RLL pulm nodule: suspect for malignancy, likely primary given smoking history -and lesion at Fx site *Acute blood loss anemia *Breast mass *Myeloma? Noted reported on femoral lesion P: -Dr. Posadas for orthopedic surgery -Pain control -restart Bisoprolol, restart lisinopril BP stable -f/u H&H, Hb low today, transfuse 2 units and monitor. no e/o acute bleed -PT/OT -CM for placement -f/u with PCP/Oncology outpt for further w/u and biopsy of lung nodule: Dr. Posadas has talked to Orthopedic Oncologist Dr. Olsen and Dr. Bean who will review imaging and determine best route of biopsy -Pt has had usg and mammogram done in the last 2 yrs, but ct shows that the size of nodule is larger, will benefit from outpatient mammogram -will await official results on myeloma, will need oncology follow up as outpatient. -ppx: SCDs, per ortho at discharge. Pt wishes to be discharged home, will likely go home with therapy if possible tomorrow or day after. I will try to touch base with the patients PCP to give her an update on the patients condition. Medical - PN: Qual - Stroke Symptom Onset Unknown: No
[2018-07-19] MEDS ORDERED: CALCIUM CARBONATE 500 MG TAB.CHEW CHEWED PRN (13:08)
[2018-07-19] MEDS ORDERED: CALCIUM CARBONATE 500 MG TAB.CHEW ONE (13:18)
[2018-07-19] MEDS: PRAMIPEXOLE 0.25 MG TABLET PO SCH (21:54)
[2018-07-20] MEDS: HYDROCODONE/APAP 7.5/325MG TABLET PO PRN ×2 (04:28→12:04)
[2018-07-20] MEDS: 0.9 % SODIUM CHLORIDE 10 ML SYRINGE IV SCH (05:29)
[2018-07-20] MEDS: 0.9 % SODIUM CHLORIDE 1,000 ML IV SCH (05:29)
[2018-07-20 06:18] LABS: Basophils # (Auto) 0 K/mcL (0.0-0.3); Basophils % (Auto) 0.2 % (0.0-2.0); Eosinophils # (Auto) 0.1 K/mcL (0.0-0.7); Eosinophils % (Auto) 1.6 % (0.0-7.0); Granulocytes % (Auto) 72.3 % (38.0-78.0); Lymphocytes # (Auto) 1.1 K/mcL (1.5-4.8); Lymphocytes % (Auto) 14.8 % (15.5-49.0); Mean Cell Volume 88.2 fL (80.0-100.0); Mean Corpuscular HGB Conc 33.8 g/dL (31.0-36.0); Mean Corpuscular Hemoglobin 29.8 pg (26.0-34.0); Monocytes # (Auto) 0.8 K/mcL (0.1-0.9); Monocytes % (Auto) 11.1 % (1.0-12.0); Platelet Count 250 K/mcL (140-440); RBC 2.78 M/mcL (4.00-5.20); Red Cell Distribution Width 15.9 % (11.5-14.5)
[2018-07-20 06:33] LABS: ALT/SGPT 11 U/l (0-40); Albumin 2.9 gm/dL (3.2-5.2); Albumin/Globulin Ratio 0.6 (1.0-2.3); Alkaline Phosphatase 44 U/L (39-117); Bilirubin,Direct < 0.2 mg/dL (0.0-0.3); Blood Urea Nitrogen 12 mg/dl (8-23); Gamma Glutamyl Transpeptidase 12 U/L (5-36); Uric Acid 6.2 mg/dL (2.5-8.0)
[2018-07-20] MEDS ORDERED: MAGNESIUM HYDROXIDE 30 ML ORAL.SUSP PO PRN (06:44)
[2018-07-20] MEDS ORDERED: BISACODYL 10 MG SUPP.RECT PR PRN (06:44)
[2018-07-20] MEDS ORDERED: FLEETS ADULT ENEMA PR PRN (06:44)
--- NOTE | 2018-07-20 08:07 | Discharge Summary ---
Providers - Providers Patient information: Note initiated : 07/20/18 at 8:03 am Service Date, if different from initiated Date: [] Patient: Angelica Lockett 68 y/o F admitted on 07/17/18 for Rt Hip Injury. Chief Complaint: [S/P RIGHT INTRAMEDULLARY PROXIMAL FEMUR RODDING USING GAMMA NAIL] PATIENT IS DOING WELL AND AMBULATES WELL WITH A WALKER. SHE DENIES ANY NEW ONSET LOWER EXTREMITY WEAKNESS/PARESTHESIAS. Date of admission: 07/17/18 Discharge date: 07/20/18 Attending physician: Adilson Posadas Hospitalization Hospital course: POSTOPERATIVELY, THE PATIENT WAS RETURNED TO THE [facility]. SHE WAS MAINTAINED ON PROPHYLACTIC ABX AND PROVIDED ROUTINE PAIN MANAGEMENT. SHE AMBULATED DAILY WITH PT. AT THE TIME OF DISCHARGE, SHE IS DOING WELL AND TOLERATING ALL MEDICATIONS WELL. SHE IS DISCHARGED TO FOLLOW-UP WITH ME IN APPROXIMATELY 2 WEEKS. SHE WILL CALL WITH ANY QUESTIONS OR CONCERNS WHATSOEVER. Discharge diagnosis: S/P RIGHT INTRAMEDULLARY PROXIMAL FEMUR RODDING Secondary discharge diagnosis: RIGHT DISPLACED PROXIMAL FEMUR FX Reason for admission: THE PATIENT WAS ADMITTED FOR OPERATIVE TX OF A RIGHT PROXIMAL FEMUR FX. Procedures: THE PATIENT WAS TAKEN TO THE OPERATING ROOM ON THE DATE OF ADMISSION WHERE SHE UNDERWENT A RIGHT ORIF OF A DISPLACED PROXIMAL FEMUR FX USING A INTRAMEDULLARY GAMMA NAIL. THE PROCEDURE WAS TOLERATED WELL WITH NO COMPLICATIONS. Complications: NONE Exam - Exam Incision healing: Yes Incision draining: No Incision red: No Incision swollen: No Incision inflamed: No Clean and dry: Yes Weight bearing status: partial Ortho Discharge Plan - General - Patient Instructions Diet: Regular Diet Activity: ambulate with assistive device, partial weight bearing Dressing Care: Aquacel Ag - leave on for 5 days Patient Education: Open Reduction and Internal Fixation of a Hip Fracture (DC) Additional Instructions: Discharge Instructions: Do the exercises at home that physical therapy gave you throughout the day. Toe Touch weight bearing only with right leg/foot. Wear comfortable clothing for physical therapy. You are scheduled to start physical therapy at [facility] ([phone], [address] [facility] [address] [facility] [address]) on Jul.23 at 10:00 am, please arrive 15 minutes early for paperwork. Take your prescription, photo ID, insurance cards, and current medication list with you to your first physical therapy appointment. Take your prescription to fruit or nut picker any medication. You have the Aquacel Ag dressing, leave in place for 7 days then remove. If dressing becomes soiled (turns black), remove and use gauze 4x4 dressing and silvasorb ointment and change daily. Keep incision clean and dry. You may start showering on post op day #2. To avoid constipation while taking any narcotic pain medication, take an over the counter stool softener/laxative. Use ice packs as directed, on for 20 minutes at a time throughout the day. This and elevation will help with pain and swelling. Call your physician for fevers above 100.5 or pain not controlled by medication. Your prescriptions are with your discharge information. Some medications were electronically transmitted to your pharmacy of choice. Take Aspirin twice daily, for 30 days, as prescribed to prevent blood clots ( see medication list). - Follow Up Plan Follow Up Appointments: Adilson Posadas MD [Physician] - 07/30/18 8:40 am (check in at 8:20 am for this appointment.) Shonda Lei DO [Primary Care Provider] - Disposition: Home, Self-Care Prognosis: Good Rehab Potential: Good I certify that the patient requires SNF services: No Overall status at discharge: patient is progressing back to baseline - Orders For Discharge Prescriptions: Aspirin [Lite Coat Aspirin] 325 mg PO BID 30 Days #60 tab Hydrocodone/APAP 7.5/325Mg [[place] 7.5-325Mg] 1 - 2 tab PO Q4-6HP PRN #60 tab PRN Reason: Pain Pending Studies Resuscitation Status Full Code Diet Regular Diet Start SunJul 17 2259 Hydrocodone Bitart/Acetaminophen ([place] 7.5/325mg) 1 - 2 tab PO Q4-6HP PRN PRN Reason: PAIN LEVEL 3-6 Last Admin: 07/20/18 04:28 Dose: 1 tab Admin: 07/19/18 21:54 Dose: 1 tab Admin: 07/19/18 14:43 Dose: 1 tab Admin: 07/19/18 10:04 Dose: 1 tab Admin: 07/19/18 06:36 Dose: 1 tab Admin: 07/19/18 01:45 Dose: 1 tab Admin: 07/18/18 18:00 Dose: 1 tab Bisoprolol Fumarate (Zebeta) 10 mg PO DAILY [facility] Last Admin: 07/19/18 08:14 Dose: 10 mg Admin: 07/18/18 08:38 Dose: 10 mg Docusate Sodium (Colace) 100 mg PO BID [facility] Last Admin: 07/19/18 21:54 Dose: 100 mg Admin: 07/19/18 08:13 Dose: 100 mg Admin: 07/18/18 20:28 Dose: 100 mg Admin: 07/18/18 08:38 Dose: 100 mg Famotidine (Pepcid) 20 mg PO BID [facility] Last Admin: 07/19/18 21:54 Dose: 20 mg Admin: 07/19/18 08:14 Dose: 20 mg Admin: 07/18/18 20:27 Dose: 20 mg Admin: 07/18/18 08:38 Dose: 20 mg Hydralazine HCl (Apresoline) 0 mg IV Q2HP PRN PRN Reason: Hypertension Last Admin: 07/19/18 23:42 Dose: 10 mg Sodium Chloride (Sodium Chloride 0.9%) 1,000 mls @ 75 mls/hr IV .[id number] [facility] Last Admin: 07/20/18 05:29 Dose: Not Given Admin: 07/19/18 23:23 Dose: 75 mls/hr Infusion: 07/19/18 23:23 Dose: 75 mls/hr Admin: 07/19/18 18:04 Dose: 75 mls/hr Infusion: 07/19/18 17:17 Dose: 0 mls/hr Admin: 07/19/18 03:36 Dose: 75 mls/hr Infusion: 07/19/18 01:57 Dose: 75 mls/hr Admin: 07/18/18 12:37 Dose: 75 mls/hr Infusion: 07/18/18 12:36 Dose: 0 mls/hr Admin: 07/17/18 23:00 Dose: 75 mls/hr Methocarbamol (Robaxin) 0 mg IV Q6HP PRN PRN Reason: Muscle Spasm Last Admin: 07/18/18 08:38 Dose: 1,000 mg Potassium/Phosphorus/Sodium (Neutra Phos) 1 packet PO BID [facility] Last Admin: 07/19/18 21:54 Dose: 1 packet Admin: 07/19/18 08:14 Dose: 1 packet Pramipexole Dihydrochloride (Mirapex) 0.125 mg PO HS [facility] Last Admin: 07/19/18 21:54 Dose: 0.125 mg Admin: 07/18/18 20:28 Dose: 0.125 mg Simvastatin (Zocor) 20 mg PO DAILY [facility] Last Admin: 07/19/18 08:14 Dose: 20 mg Admin: 07/18/18 08:38 Dose: 20 mg Sodium Chloride (Saline Flush) 10 ml IV Q8 [facility] Last Admin: 07/20/18 05:29 Dose: Admin: 07/19/18 22:13 Dose: Not Given Admin: 07/19/18 14:44 Dose: Not Given Admin: 07/19/18 06:28 Dose: Not Given Admin: 07/18/18 20:28 Dose: Not Given Admin: 07/18/18 13:10 Dose: Not Given Admin: 07/18/18 04:30 Dose: Not Given Shift Summary 07/20/18 04:06 Shift Summary by Kanwal Victoria Addendum entered by Kanwal Victoria R.N. 07/20/18 04:12: Pt. is TTWB at this time. IV to L. AC running 0.9% at 75mls/hr. LBM 07-17-18. Had prune juice last AM shift. Received 10mg IV Apresoline for SBP>150, effective. Original Note: VSS. A&Ox4. Medicated for pain x 1, PO [place] 7.5. Dressing to right hip dry and intact with very small areas of shadow drainage circled. Productive cough present, mucous clear. Up with SBA and FWW. Pt. slept well tonight between cares. Received 2 units PRBCs yesterday AM, was asymptomatic. Labs to be drawn this AM. Would like to d/c home today if able. Initialized on 07/20/18 04:06 - END OF NOTE
[2018-07-20] MEDS: SIMVASTATIN 20 MG TABLET PO SCH (08:12)
[2018-07-20] MEDS: BISOPROLOL 5 MG TABLET PO SCH (08:13)
[2018-07-20] MEDS: NEUTRA PHOS 1 PACKET PO SCH (08:13)
[2018-07-20] MEDS: DOCUSATE SODIUM 100 MG CAPSULE PO SCH (08:13)
[2018-07-20] MEDS: FAMOTIDINE 20 MG TABLET PO SCH (08:13)
--- NOTE | 2018-07-20 08:20 | Orthopedic Progress Note ---
Subjective Patient information: Note initiated : 07/20/18 at 8:17 am Service Date, if different from initiated Date: [] Patient: Angelica Lockett 68 y/o F admitted on 07/17/18 for Rt Hip Injury. Chief Complaint: [S/P ORIF OF RIGHT PROXIMAL FEMUR FX] PATIENT IS DOING WELL AND IS ANXIOUS TO RETURN HOME. SHE DENIES ANY NEW ONSET LOWER EXTREMITY WEAKNESS/PARESTHESIAS. Principal diagnosis: RIGHT DISCPLACED PROXIMAL FEMUR FX Objective Vital signs: Vital Signs Temp Pulse Resp BP Pulse Ox 07/20/18 06:48 98.9 F 16 156/83 98 07/20/18 03:30 98.5 F 84 20 136/72 95 07/19/18 23:51 99.0 F 86 18 132/74 99 07/19/18 20:00 98.9 F 82 20 151/76 99 07/19/18 16:00 98.4 F 18 145/70 98 07/19/18 12:00 99.3 F H 18 115/60 97 Intake and Output 07/19/18 07/20/18 07/20/18 21:59 05:59 13:59 Intake Total 1600 / 1600 799 / 799 Output Total 1100 / 1100 1450 / 1450 Balance 500 / 500 -651 / -651 Intake: IV 1000 / 1000 399 / 399 Sodium Chloride 0.9% 1,000 ml @ 1000 / 1000 399 / 399 75 mls/hr IV .[id number] [facility] Rx#: [id number] Oral 600 / 600 400 / 400 Output: Void Amount 1100 / 1100 1450 / 1450 Other: Meal Dinner Percent of Meal Consumed 50% Feeding Ability Independent Urine Appearance Clear Clear Urine Color Bright Yellow Bright Yellow Urine Odor Normal Weight 148 lb Intake & Output: Intake & Output 07/19/18 07/20/18 07/20/18 21:59 05:59 13:59 Intake Total 1600 / 1600 799 / 799 Output Total 1100 / 1100 1450 / 1450 Balance 500 / 500 -651 / -651 Weight 148 lb Intake: IV 1000 / 1000 399 / 399 Sodium Chloride 0.9% 1,000 ml @ 1000 / 1000 399 / 399 75 mls/hr IV .[id number] [facility] Rx#: [id number] Oral 600 / 600 400 / 400 Output: Void Amount 1100 / 1100 1450 / 1450 Other: Meal Dinner Percent of Meal Consumed 50% Feeding Ability Independent Urine Appearance Clear Clear Urine Color Bright Yellow Bright Yellow Urine Odor Normal Incision: Yes healing, Yes clean and dry Incision clean and dry: Yes Dressing: Yes clean, Yes dry, Yes intact Weight bearing status: partial Neurological exam IM: Yes alert, Yes motor sensory intact, Yes neurovascular intact Extremities exam IM: Yes calf tenderness (NEGATIVE), Yes Ghulam's sign (NEGATIVE BILATERALLY), Yes neurovascular intact - Labs CBC & BMP: 07/20/18 04:15 07/20/18 04:15 Labs: Orthopedic Labs 07/17/18 09:11 PT 15.2 H INR 1.2 H 07/20/18 07/19/18 07/19/18 04:15 16:29 07:37 Hgb 8.3 L 8.8 L 6.5 L* Hct 24.5 L 25.7 L 19.4 L* 07/19/18 07/18/18 07/18/18 04:20 15:28 04:05 Hgb 5.8 L* 7.7 L 7.6 L Hct 17.9 L* 22.5 L 22.9 L 07/17/18 09:11 Hgb 9.5 L Hct 28.8 L Assessment and Plan (1) Fracture of hip DISCHARGE TO HOME TODAY. DISCHARGE INSTRUCTIONS PROVIDED. TTWB ON RIGHT LOWER EXTREMITY. APPLY AQUACEL PRIOR TO DISCHARGE. FOLLOW-UP IN 2 WEEKS. Status: Acute
[2018-07-20] MEDS ORDERED: LISINOPRIL 20 MG TABLET PO SCH (09:00)
[2018-07-20] MEDS ORDERED: VITAMIN D3 1,000 UNIT TABLET PO SCH (09:00)
[2018-07-20] MEDS ORDERED: HYDROCHLOROTHIAZIDE 12.5 MG CAPSULE PO SCH (09:00)
[2018-07-20] MEDS ORDERED: LISINOPRIL/HCTZ 20/12.5MG TABLET PO SCH (09:00)
--- NOTE | 2018-07-20 11:03 | Discharge Summary ---
Medical - DS: Prov Patient information: Note initiated : 07/20/18 at 10:55 am Service Date, if different from initiated Date: [] Patient: Angelica Lockett 68 y/o F admitted on 07/17/18 for Rt Hip Injury. Chief Complaint: [] Date of admission: 07/17/18 11:55 Discharge date: 07/20/18 Primary care physician: Shonda Lei DO Admitting clinician: Hussain Sun Consults: 07/17/18 Consult to Physician [CONS] Stat Comment: Consulting Provider: Adilson Posadas Reason For Exam: Physician to Consult Consult to Physician [CONS] Stat Comment: Consulting Provider: Hola Palma Reason For Exam: Physician to Consult Discharging clinician: Hussain Sun Medical - DS: Meds - Discharge Medications Prescriptions: Aspirin [Lite Coat Aspirin] 325 mg PO BID 30 Days #60 tab Hydrocodone/APAP 7.5/325Mg [[place] 7.5-325Mg] 1 - 2 tab PO Q4-6HP PRN #60 tab PRN Reason: Pain Active and Home Medications: Home Medications cholecalciferol (vitamin D3) 2,000 unit capsule 2,000 unit PO QDAY #90 cap 07/15 [Rx Confirmed 07/17/18 Last Taken 07/17/18 09:00] pramipexole 0.125 mg tablet 0.125 mg PO QHS #60 tab 04/04/18 [Rx Confirmed 07/17 Last Taken 07/17/18 09:00] rosuvastatin 5 mg tablet 5 mg PO QDAY #90 tab 04/04/18 [Rx Confirmed 07/17/18 Last Taken Unknown] tramadol 50 mg tablet 50 mg PO Q6H PRN #30 tab 05/07/18 [Rx Confirmed 07/17/18 Last Taken Unknown] lisinopril 20 mg-hydrochlorothiazide 12.5 mg tablet 1 tab PO QDAY #90 tab [Rx Confirmed 07/17/18 Last Taken 07/16/18 09:00] bisoprolol fumarate 10 mg tablet 10 mg PO QDAY #90 tab 07/11/18 [Rx Confirmed Last Taken 07/17/18 09:00] Aspirin [Lite Coat Aspirin] 325 mg PO BID 30 Days #60 tab 07/20/18 [Rx Last Taken Unknown] Hydrocodone/APAP 7.5/325Mg [[place] 7.5-325Mg] 1 - 2 tab PO Q4-6HP PRN #60 tab [Rx Last Taken Unknown] Medical - DS: Hosp Hospital course: Ms. Lockett is a 68 year old F with a history of osteopenia who sitting on a couch with her when her dog started fighting. She stood up rapidly and the bent over rapidly to grab the dog and is when she felt immediate pain in her right hip. She sat down and then her helped her to stand up and that she heard a pop with more pain. She was immediately brought into the ER where she was found to have a right comminuted and angulated hip fracture on the right. Vital signs are stable other than being hypertensive at this time. Denies any chest pain shortness of breath lightheadedness abdominal pain, no numbness or tingling to extremity. Dr. Posadas contacted from the ED for orthopedic surgical intervention. Right Hip Fracture- Dr Gregg performed the surgery, noted that patient likely had a pathological fracture. 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 Patient does not wish to go to rehab at this time, wants to go home has good support system. D/c home with family. PT and follow up as per Ortho. DVT prophylaxis as per ortho. Acute blood loss anemia- Pt had drop in Hb, post op, needed 2 units prbc transfusion. 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 Will need oncology evaluation as outpatient. will advise pt to follow up with oncology for same. Lung Mass- Dr Bean evaluated the patient, Plan to follow up with him as outpatient. Patient will likely need a needle biopsy of the lung mass. Breast lesion- Left breast mass/ nodule noted. It was being followed by radiology in the past. The last mammogram was 1 yr ago, the CT done this time around showed that the lesion was bigger than previously documented. Patient will benefit from a mammogram. I have reviewed the findings and plan of care with the patients PCP Dr Lei. Discharge diagnosis: hip fracture. - Time Spent with Patient Total time spent providing and/or coordinating discharge services: Greater than 30 minutes Medical - DS: Exam - Constitutional Vitals: Vital Signs Temp Pulse Resp BP Pulse Ox 07/20/18 06:48 98.9 F 16 156/83 98 07/20/18 03:30 98.5 F 84 20 136/72 95 07/19/18 23:51 99.0 F 86 18 132/74 99 07/19/18 20:00 98.9 F 82 20 151/76 99 07/19/18 16:00 98.4 F 18 145/70 98 07/19/18 12:00 99.3 F H 18 115/60 97 Intake and Output 07/19/18 07/20/18 07/20/18 21:59 05:59 13:59 Intake Total 1600 / 1600 799 / 799 Output Total 1100 / 1100 1450 / 1450 650 / 650 Balance 500 / 500 -651 / -651 -650 / -650 Intake: IV 1000 / 1000 399 / 399 Sodium Chloride 0.9% 1,000 ml @ 1000 / 1000 399 / 399 75 mls/hr IV .[id number] [facility] Rx#: [id number] Oral 600 / 600 400 / 400 Output: Void Amount 1100 / 1100 1450 / 1450 650 / 650 Other: Meal Dinner Percent of Meal Consumed 50% Feeding Ability Independent Urine Appearance Clear Clear Clear Urine Color Bright Yellow Bright Yellow [place] Urine Odor Normal Weight 148 lb Additional comments: Constitutional; Afebrile, cooperative, alert, not in distress. Respiratory system: Air Entry equal on both sides, No crackles or wheezing, no rhonchi. CVS- Rate rhythm regular, S1,S2 heard, no gallop, no rub. Abdomen- Soft nontender abdomen, no organomegaly, no tenderness, no guarding or rigidity, [employer]- AOOx3, moving all extremities, no gross focal deficit noted. Medical - DS: Data Labs on day of discharge: Labs from last 24 hours 07/20/18 07/20/18 07/19/18 04:15 04:15 16:29 WBC 7.2 RBC 2.78 L Hgb 8.3 L 8.8 L Hct 24.5 L 25.7 L MCV 88.2 MCH 29.8 MCHC 33.8 RDW 15.9 H Plt Count 250 MPV 7.3 L Gran % 72.3 Lymph % (Auto) 14.8 L Dukes % (Auto) 11.1 Eos % (Auto) 1.6 Baso % (Auto) 0.2 Gran # 5.2 Lymph # (Auto) 1.1 L Dukes # (Auto) 0.8 Eos # (Auto) 0.1 Baso # (Auto) 0 Sodium 139 Potassium 3.8 Chloride 100 Carbon Dioxide 24 Anion Gap 15.0 BUN 12 Creatinine 0.6 GFR Calculation 94 Glucose 102 Uric Acid 6.2 Calcium 8.7 Phosphorus 2.0 L Magnesium 1.9 Total Bilirubin 0.5 Direct Bilirubin < 0.2 GGT 12 AST 27 ALT 11 Alkaline Phosphatase 44 Lactate Dehydrogenase 190 Total Protein 8.0 Albumin 2.9 L Globulin 5.1 H Albumin/Globulin Ratio 0.6 L Triglycerides 103 Medical - DS: A/P - Patient/Caregiver Discharge Instructions Activity: as per physical therapy Diet: Regular Diet Additional Instructions: Discharge Instructions: Resume home diet as tolerated. Activity as tolerated. Follow up with [facility] on 07/30 at 8:40 am. If you need to change your appointment, contact their office at [phone]. Do the exercises at home that physical therapy gave you throughout the day. Toe Touch weight bearing only with right leg/foot. You are scheduled to start physical therapy at [facility] ([phone], [address] [facility] [facility] [address]) on Jul.23 at 10:00 am. Please arrive 15 minutes early for paperwork. Wear comfortable clothing for physical therapy. Take your prescription, photo ID, insurance cards, and current medication list with you to your first physical therapy appointment. Take your prescription, photo id, and insurance cards to coal picker any medication. Your prescriptions are with your discharge information. Some medications were electronically transmitted to your pharmacy of choice. Pain medication can cause constipation. To avoid constipation while taking any narcotic pain medication, take an over the counter stool softener/laxative. You have the Aquacel Ag dressing, leave in place for 7 days then remove. If dressing becomes soiled (turns black), remove and use gauze 4x4 dressing and silvasorb ointment and change daily. Keep incision clean and dry. You may start showering on post op day #2. Return to ER for uncontrolled pain, unable to go to the bathroom, signs of infection, redness, bleeding, nausea and/or vomiting, fever, chills, dizziness, shortness of breath, chest pain, or other acute symptom. Take Aspirin twice daily, for 30 days, as prescribed to prevent blood clots ( see medication list). Follow up with PCP in 1 week, Make sure your PCP orders a mammogram for you. You have a suspicious lesion on the left breast. Follow up with Dr Bean in 1-2 weeks, he will schedule a biopsy of the lung mass for you. Follow up with Oncology in 1-[address] Hinson. for the diagnosis of plasmacytoma/ myeloma ( a type of blood cancer). Prescriptions: Aspirin [Lite Coat Aspirin] 325 mg PO BID 30 Days #60 tab Hydrocodone/APAP 7.5/325Mg [[place] 7.5-325Mg] 1 - 2 tab PO Q4-6HP PRN #60 tab PRN Reason: Pain Other Amb Orders: Wheelchair Location: None Selected - Follow up Plan Follow up with: Adilson Posadas MD [Physician] - 07/30/18 8:40 am (check in at 8:20 am for this appointment.) Shonda Lei DO [Primary Care Provider] - Randell Bean MD [Physician] - Willi Hinson MD [Physician] - Disposition: Home, Self-Care Prognosis: Fair Rehab Potential: Fair I certify that the patient requires SNF services: No Overall status at discharge: patient is progressing back to baseline
[2018-07-20] MEDS ORDERED: PNEUMOCOCCAL 23-VAL P-SAC VAC 0.5 ML VIAL IM ONE (12:00)
--- NOTE | 2018-07-22 10:47 | Surgical Pathology Report ---
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 (SEE COMMENT) (ACP:sln) COMMENT: The morphologic appearance and immunohistochemical staining pattern is consistent with plasma cell neoplasm. The findings could be associated with multiple myeloma or a solitary plasmacytoma. Clinical and radiographic correlation is required. MICROSCOPIC DESCRIPTION Sections of the right femur biopsy demonstrate monotonous sheets of mononuclear cells with lamellar bone, hemorrhage and necrosis. The cells are small to moderate in size with eccentric nuclei and pale alexander cytoplasms. The chromatin pattern is irregular. Mitotic activity is brisk. Vessels are present in the background. No hematopoietic elements are seen. An immunohistochemical panel is performed (adequate technical controls): Pancytokeratin plus: Negative CD138: Positive kappa and lambda light chains: [place] uniformly positive CD20: Negative CD3: Negative SOX10: Negative Some of the tests reported here may not have been cleared or approved by the U.S. Food and Drug Administration (FDA). However, the FDA has determined that such clearance or approval is not necessary. Pursuant to the requirements of CLIA, this laboratory has established and verified the accuracy and precision of all tests, and additional information about these tests is available upon request. All technical controls are adequate. PROCEDURAL IMPRESSION Right femur fracture. GROSS DESCRIPTION Received in formalin labeled with the patient information, is a fragment of rubbery anaya material which measures 0.7 x 0.5 x 1 cm. There is some apparent blood clot attached to this fragment. Also within the container are possible fragments of dark red-brown muscle and some dark red-brown apparent clot. Bone is not identified within this material. Totally submitted - one cassette. (RAD:sln) Electronically Signed by: Chandu Gibbs M.D.
== END 2018-07-20 12:28 | disposition home or self-care (01) | DRG 478 ==
LOC: ED 08:25 → MEDSUR 11:51
PROVIDERS: ADMIT Internal Medicine; ATTEND Internal Medicine
CPT/HCPCS: 62322; 73502; 97162; 97167; 99231; 90732; C1713; C1769; J0131; J0360; J0690; J1100; J1170; J2001; J2250; J2370; J2405; J2800; J3010; J7030; J7050; J7120; J7620; J7620-GY